=== PATIENT | female | born 1955 | race Caucasian/White ===

== ENCOUNTER 2017-01-19 04:26 | Emergency (ER) | payer SELFPAY ==
[~2017-01-19] VITALS: Ht 157.5 cm; Wt 79.4 kg
--- NOTE | 2017-01-19 04:41 | PHYS DOC ---
Adult General Chief Complaint Chief Complaint: ABDOMINAL PAIN HPI HPI Patient is a 61 year old female presenting to the emergency department for evaluation of abdominal pain nausea vomiting. Patient says that this pain started 3 days ago and started in the right flank but is now radiating towards the right lower quadrant and associated with nausea vomiting chills difficulty urinating. He says that she has had a cholecystectomy but she still has her appendix and she denies ever having kidney stones. She says that there is no gross hematuria. Patient appears uncomfortable but is nontoxic in no obvious distress. Review of Systems Review of Systems Constitutional: Denies fever or chills [] Eyes: Denies change in visual acuity, redness, or eye pain [] HENT: Denies nasal congestion or sore throat [] Respiratory: Denies cough or shortness of breath [] Cardiovascular: No additional information not addressed in HPI [] GI: + abdominal pain, nausea, vomiting. No bloody stools or diarrhea [] : + dysuria. No hematuria [] Musculoskeletal: + back pain. No joint pain [] Integument: Denies rash or skin lesions [] Neurologic: Denies headache, focal weakness or sensory changes [] Current Medications Current Medications Current Medications Medications (Trade) Dose Ordered Sig/Kevan Start Time Stop Time Status Last Admin Dose Admin Fentanyl Citrate (Fentanyl 2ml Vial) 75 mcg 1X ONCE 01/19/17 05:15 01/19/17 05:16 DC 01/19/17 06:00 75 MCG Iohexol (Omnipaque 300 Mg/ml) 60 ml 1X ONCE 01/19/17 05:30 01/19/17 05:31 DC 01/19/17 05:55 60 ML Ketorolac Tromethamine (Toradol) 30 mg 1X ONCE 01/19/17 05:15 01/19/17 05:16 DC 01/19/17 06:02 30 MG Ondansetron HCl (Zofran) 8 mg 1X ONCE 01/19/17 05:15 01/19/17 05:16 DC 01/19/17 05:56 8 MG Sodium Chloride 1,000 ml @ 1,000 mls/hr 1X ONCE 01/19/17 05:00 01/19/17 05:59 DC 01/19/17 05:55 1,000 MLS/HR Allergies Allergies Allergies Coded Allergies Type Severity Reaction Last Updated Verified Penicillins Allergy Unknown 01/19/17 Yes ibuprofen Allergy Unknown 01/19/17 Yes tetracycline Allergy Unknown 01/19/17 Yes Physical Exam Physical Exam Constitutional: Well developed, well nourished, no acute distress, non-toxic appearance. [] HENT: Normocephalic, atraumatic, bilateral external ears normal, oropharynx moist, no oral exudates, nose normal. [] Eyes: PERRLA, EOMI, conjunctiva normal, no discharge. [] Neck: Normal range of motion, no tenderness, supple, no stridor. [] Cardiovascular:Heart rate regular rhythm, no murmur [] Lungs & Thorax: Bilateral breath sounds clear to auscultation [] Abdomen: Bowel sounds normal, soft, + RLQ tenderness, no rebound or guarding, no masses, no pulsatile masses. [] Skin: Warm, dry, no erythema, no rash. [] Back: No tenderness, + R CVA tenderness. [] Extremities: No tenderness, no cyanosis, no clubbing, ROM intact, no edema. [] Neurologic: Alert and oriented X 3, normal motor function, normal sensory function, no focal deficits noted. [] Current Patient Data Vital Signs Vital Signs Date Time Temp Pulse Resp B/P (MAP) Pulse Ox O2 Delivery O2 Flow Rate FiO2 01/19/17 06:00 16 94 Room Air 01/19/17 05:54 60 167/71 (103) 01/19/17 04:49 98.3 98.3 Lab Values Laboratory Tests Test 01/19/17 04:56 01/19/17 05:04 White Blood Count 14.0 x10^3/uL (4.0-11.0) H Red Blood Count 4.84 x10^6/uL (3.50-5.40) Hemoglobin 14.7 g/dL (12.0-15.5) Hematocrit 43.0 % (36.0-47.0) Mean Corpuscular Volume 89 fL (79-100) Mean Corpuscular Hemoglobin 30 pg (25-35) Mean Corpuscular Hemoglobin Concent 34 g/dL (31-37) Red Cell Distribution Width 12.5 % (11.5-14.5) Platelet Count 248 x10^3/uL (140-400) Neutrophils (%) (Auto) 74 % (31-73) H Lymphocytes (%) (Auto) 18 % (24-48) L Monocytes (%) (Auto) 7 % (0-9) Eosinophils (%) (Auto) 0 % (0-3) Basophils (%) (Auto) 1 % (0-3) Neutrophils # (Auto) 10.3 x10^3uL (1.8-7.7) H Lymphocytes # (Auto) 2.6 x10^3/uL (1.0-4.8) Monocytes # (Auto) 0.9 x10^3/uL (0.0-1.1) Eosinophils # (Auto) 0.1 x10^3/uL (0.0-0.7) Basophils # (Auto) 0.1 x10^3/uL (0.0-0.2) Prothrombin Time 11.6 SEC (11.7-14.0) L Prothrombin Time INR 0.9 (0.8-1.1) PTT 27 SEC (24-38) Sodium Level 139 mmol/L (136-145) Potassium Level 3.4 mmol/L (3.5-5.1) L Chloride Level 101 mmol/L (98-107) Carbon Dioxide Level 28 mmol/L (21-32) Anion Gap 10 (6-14) Blood Urea Nitrogen 16 mg/dL (7-20) Creatinine 1.3 mg/dL (0.6-1.0) H Estimated GFR (Cockcroft-Gault) 41.6 BUN/Creatinine Ratio 12 (6-20) Glucose Level 137 mg/dL (70-99) H Calcium Level 9.3 mg/dL (8.5-10.1) Total Bilirubin 0.3 mg/dL (0.2-1.0) Aspartate Amino Transferase (AST) 23 U/L (15-37) Alanine Aminotransferase (ALT) 20 U/L (14-59) Alkaline Phosphatase 90 U/L (46-116) Total Protein 6.9 g/dL (6.4-8.2) Albumin 3.4 g/dL (3.4-5.0) Albumin/Globulin Ratio 1.0 (1.0-1.7) Lipase 300 U/L (73-393) Urine Collection Type Unknown Urine Color Yellow Urine Clarity Clear Urine pH 6.0 Urine Specific [place] 1.020 Urine Protein Negative mg/dL (NEG-TRACE) Urine Glucose (UA) Negative mg/dL (NEG) Urine Ketones (Stick) Negative mg/dL (NEG) Urine Blood Negative (NEG) Urine Nitrite Negative (NEG) Urine Bilirubin Negative (NEG) Urine Urobilinogen Dipstick 0.2 mg/dL (0.2 mg/dL) Urine Leukocyte Esterase Negative (NEG) Urine RBC Occ /HPF (0-2) Urine WBC Occ /HPF (0-4) Urine Squamous Epithelial Cells Few /LPF Urine Bacteria 0 /HPF (0-FEW) Urine Mucus Mod /LPF Laboratory Tests 01/19/17 04:56 Laboratory Tests 01/19/17 04:56 EKG EKG [] Radiology/Procedures Radiology/Procedures EXAM: Abdomen and pelvis CT with intravenous contrast. HISTORY: 61-year-old female with right lower quadrant pain. TECHNIQUE: Computed tomographic images of the abdomen and pelvis were obtained following the administration of 60 cc of Omni 300 intravenous contrast. Multiplanar reformatting was performed. PQRS compliance statement: One or more of the following individualized dose reduction techniques were utilized for this examination: 1. Automated exposure control 2. Adjustment of the mA and/or kV according to patient size 3. Use of iterative reconstruction technique COMPARISON: None available. FINDINGS: There is partial visualization of an irregular opacity in the left lung base along the superior aspect of the diaphragm. Right lung bases clear. The liver demonstrates no focal abnormality. Mild intrahepatic and extrahepatic biliary ductal dilatation is seen, likely secondary to postcholecystectomy status. The spleen, pancreas, adrenal glands and left kidney demonstrate no focal abnormality. There is moderate right hydronephrosis with mild perinephric stranding. There is mild right hydroureter with periureteral stranding. Within the distal right ureter just proximal to the ureterovesicular junction is a 4 mm calculus. A single punctate calculus is seen within each renal collecting system. No left hydronephrosis is present.. The GI tract demonstrates no dilated bowel loops to suggest obstruction. The colon is decompressed throughout its length, not well evaluated. The urinary bladder is grossly unremarkable. The uterus is surgically absent. No adnexal mass is seen. No intra-abdominal or pelvic free fluid, free air or significant lymphadenopathy is seen. Aorta is normal in caliber, with prominent atherosclerotic calcification present. Overlying soft tissues and visualized osseous structures demonstrate no acute or suspicious finding. Degenerative changes are present within the lumbar spine. IMPRESSION: 1. A 4 mm, obstructing, distal right ureteral calculus is present just proximal to the UVJ, resulting in moderate right hydronephrosis as well as mild perinephric and periureteral stranding. 2. Punctate bilateral renal calculi. No left hydronephrosis. 3. Partially visualized irregular opacity in the left lung base, incompletely evaluated. Recommend outpatient dedicated CT chest exam for further evaluation. 4. Other incidental findings, detailed above. Electronically signed by: Ana Esteban MD (01/19/2017 6:06 AM) [facility] DICTATED and SIGNED BY: ANA ESTEBAN MD DATE: 01/19/17 0559 Course & Med Decision Making Course & Med Decision Making Patient with what sounds like to be a kidney stone to me however we'll check urine labs and likely CT and then reassess. There was no blood in her urine so CT with contrast was obtained. CT results still pending some transfer care to Dr. Strickland while awaiting results of tests. --- Assumed care from Dr. Barreto at the end of his shift. CT results as above. Patient has obstructing 4 mm ureteral stone with hydronephrosis, no infection. She felt better after receiving medications & requests discharge home. Recommend rest, hydration, gave prescriptions for norco, zofran, flomax. Recommend follow up with urology as soon as possible, unfortunately no urology coverage here. PCP may be able to assist. Come back for high fever, severe pain, uncontrolled vomiting, any otherwise worsening condition. Discharged home in stable condition. Barby Copeland Disclaimer Dinorah Disclaimer This electronic medical record was generated, in whole or in part, using a voice recognition dictation system. Departure Departure Impression: Primary Impression: Abdominal pain Additional Impressions: Nausea & vomiting Right ureteral stone Disposition: HOME, SELF-CARE Condition: IMPROVED Patient Instructions: Kidney Stones, [id number] Additional Instructions: You were seen in the emergency department today for kidney stone. You felt better after treatment. Please rest, drink fluids to stay hydrated, take norco for severe pain & zofran for nausea, take flomax to promote passage of the stone. Follow up with a urologist within 1 week. Come back for high fever, severe pain, uncontrolled vomiting, any otherwise worsening condition. Your primary care doctor should also review your CT results with you. The radiologist saw an abnormal area in the bottom portion of your lung that may require a CT scan of your chest. Scripts Tamsulosin Hcl (FLOMAX) 0.4 Mg Cap.er.24h 1 CAP PO DAILY, #14 CAP 0 Refills Prov: BARBY NÚÑEZ MD 01/19/17 Ondansetron (ZOFRAN ODT) 4 Mg Tab.rapdis 1 TAB SL Q8HRS, #10 TAB Prov: BARBY NÚÑEZ MD 01/19/17 Hydrocodone/Apap 5-325 (NORCO 5-325 TABLET) 1 Each Tablet 1 TAB PO PRN Q6HRS Y for PAIN, #10 TAB 0 Refills Prov: BARBY NÚÑEZ MD 01/19/17 Problem Qualifiers STEFAN BARRETO DO Jan 19, 2017 04:41 BARBY NÚÑEZ MD Jan 19, 2017 06:47
[2017-01-19] MEDS ORDERED: IV NORMAL SALINE 1000ML BAG 1,000 ML IV ONE (05:00)
[2017-01-19 05:01] LABS: BASO # 0.1 x10^3/uL (0.0-0.2); BASO % 1 % (0-3); EOS % 0 % (0-3); HEMOGLOBIN 14.7 g/dL (12.0-15.5); LYMPH # 2.6 x10^3/uL (1.0-4.8); LYMPH % 18 % (24-48); MEAN CORPUSCULAR HEMOGLOBIN 30 pg (25-35); MEAN CORPUSCULAR HGB CONC 34 g/dL (31-37); MEAN CORPUSCULAR VOLUME 89 fL (79-100); MONO % 7 % (0-9); NEUT % 74 % (31-73); PLATELET COUNT 248 x10^3/uL (140-400); RED BLOOD COUNT 4.84 x10^6/uL (3.50-5.40); RED CELL DISTRIBUTION WIDTH 12.5 % (11.5-14.5)
[2017-01-19 05:08] LABS: CALCIUM 9.3 mg/dL (8.5-10.1); CREATININE 1.3 mg/dL (0.6-1.0); GFR 41.6; POTASSIUM 3.4 mmol/L (3.5-5.1)
[2017-01-19 05:14] LABS: ALBUMIN 3.4 g/dL (3.4-5.0); TOTAL BILIRUBIN 0.3 mg/dL (0.2-1.0); TOTAL PROTEIN 6.9 g/dL (6.4-8.2)
[2017-01-19 05:14] LABS: BILIRUBIN,URINE NEGATIVE (NEG); GLUCOSE,URINE NEGATIVE (NEG); NITRITE,URINE NEGATIVE (NEG); PROTEIN,URINE NEGATIVE (NEG-TRACE); UROBILINOGEN,URINE 0.2 mg/dL (0.2 mg/dL)
[2017-01-19] MEDS ORDERED: fentaNYL PF VIAL 100 MCG/2 ML VIAL IV ONE (05:15)
[2017-01-19] MEDS ORDERED: ONDANSETRON PF 4 MG/2 ML VIAL. IV ONE (05:15)
[2017-01-19] MEDS ORDERED: KETOROLAC TROMETHAMINE 30 MG/ML INJ. IV ONE (05:15)
[2017-01-19 05:26] LABS: BACTERIA,URINE 0 /HPF (0-FEW); RBC,URINE OCC /HPF (0-2); SQUAMOUS EPITHELIAL CELL,UR FEW /LPF; WBC,URINE OCC /HPF (0-4)
[2017-01-19] MEDS ORDERED: IOHEXOL 300 MG/ML 75 ML VIAL IV ONE (05:30)
[2017-01-19 05:33] LABS: INR 0.9 (0.8-1.1); PROTHROMBIN TIME PATIENT 11.6 SEC (11.7-14.0)
[2017-01-19 05:54] VITALS: BP 167/71
--- NOTE | 2017-01-19 06:09 | RAD ---
EXAM: Abdomen and pelvis CT with intravenous contrast. HISTORY: 61-year-old female with right lower quadrant pain. TECHNIQUE: Computed tomographic images of the abdomen and pelvis were obtained following the administration of 60 cc of Omni 300 intravenous contrast. Multiplanar reformatting was performed. PQRS compliance statement: One or more of the following individualized dose reduction techniques were utilized for this examination: 1. Automated exposure control 2. Adjustment of the mA and/or kV according to patient size 3. Use of iterative reconstruction technique COMPARISON: None available. FINDINGS: There is partial visualization of an irregular opacity in the left lung base along the superior aspect of the diaphragm. Right lung bases clear. The liver demonstrates no focal abnormality. Mild intrahepatic and extrahepatic biliary ductal dilatation is seen, likely secondary to postcholecystectomy status. The spleen, pancreas, adrenal glands and left kidney demonstrate no focal abnormality. There is moderate right hydronephrosis with mild perinephric stranding. There is mild right hydroureter with periureteral stranding. Within the distal right ureter just proximal to the ureterovesicular junction is a 4 mm calculus. A single punctate calculus is seen within each renal collecting system. No left hydronephrosis is present.. The GI tract demonstrates no dilated bowel loops to suggest obstruction. The colon is decompressed throughout its length, not well evaluated. The urinary bladder is grossly unremarkable. The uterus is surgically absent. No adnexal mass is seen. No intra-abdominal or pelvic free fluid, free air or significant lymphadenopathy is seen. Aorta is normal in caliber, with prominent atherosclerotic calcification present. Overlying soft tissues and visualized osseous structures demonstrate no acute or suspicious finding. Degenerative changes are present within the lumbar spine. IMPRESSION: 1. A 4 mm, obstructing, distal right ureteral calculus is present just proximal to the UVJ, resulting in moderate right hydronephrosis as well as mild perinephric and periureteral stranding. 2. Punctate bilateral renal calculi. No left hydronephrosis. 3. Partially visualized irregular opacity in the left lung base, incompletely evaluated. Recommend outpatient dedicated CT chest exam for further evaluation. 4. Other incidental findings, detailed above. Electronically signed by: Sharon Esteban MD (01/19/2017 6:06 AM) [facility]
[2017-01-19] MEDS ORDERED: HYDR-971 PO (06:46)
[2017-01-19] MEDS ORDERED: TAMS0.4C97 PO (06:46)
[2017-01-19] MEDS ORDERED: ONDA4TAB10 SL (06:46)
== END 2017-01-19 07:18 | disposition home or self-care (01) ==
LOC: ER 04:26
DX: N20.1 Calculus of ureter (principal); R11.2 Nausea with vomiting, unspecified; Z88.0 Allergy status to penicillin; Z88.6 Allergy status to analgesic agent; Z88.1 Allergy status to other antibiotic agents; Z90.49 Acquired absence of other specified parts of digestive tract
CPT/HCPCS: 36415; 74177; 80053; 81001; 83690; 85025; 85610; 85730; 96361; 96374; 96375; 99284; J1885; J2405; J3010; J7030; Q9967

== ENCOUNTER 2017-02-20 20:49 | Emergency (ER) | payer SELFPAY ==
[~2017-02-20] VITALS: Ht 157.5 cm; Wt 83.9 kg
[~2017-02-20 20:49] MED LIST: HYDR-971 PO; ONDA4TAB10 SL; TAMS0.4C97 PO
[2017-02-20 21:30] LABS: BASO # 0.1 x10^3/uL (0.0-0.2); BASO % 1 % (0-3); EOS % 1 % (0-3); HEMATOCRIT 48.3 % (36.0-47.0); HEMOGLOBIN 16.2 g/dL (12.0-15.5); LYMPH # 3.1 x10^3/uL (1.0-4.8); LYMPH % 19 % (24-48); MEAN CORPUSCULAR HEMOGLOBIN 30 pg (25-35); MEAN CORPUSCULAR HGB CONC 34 g/dL (31-37); MEAN CORPUSCULAR VOLUME 89 fL (79-100); MONO % 5 % (0-9); NEUT % 75 % (31-73); PLATELET COUNT 305 x10^3/uL (140-400); RED BLOOD COUNT 5.42 x10^6/uL (3.50-5.40); WHITE BLOOD COUNT 16.3 x10^3/uL (4.0-11.0)
[2017-02-20 21:41] LABS: CALCIUM 10.4 mg/dL (8.5-10.1); GFR 56.2; POTASSIUM 3.7 mmol/L (3.5-5.1)
[2017-02-20 21:47] LABS: ALBUMIN 4.2 g/dL (3.4-5.0); TOTAL BILIRUBIN 0.3 mg/dL (0.2-1.0); TOTAL PROTEIN 8.3 g/dL (6.4-8.2)
[2017-02-20] MEDS ORDERED: HYDROmorphone 2 MG/ML VIAL IV ONE ×2 (22:00→23:30)
[2017-02-20] MEDS ORDERED: ONDANSETRON PF 4 MG/2 ML VIAL. IV ONE (22:00)
--- NOTE | 2017-02-20 22:38 | RAD ---
PQRS Compliance Statement: One or more of the following individualized dose reduction techniques were utilized for this examination: 1. Automated exposure control 2. Adjustment of the mA and/or kV according to patient size 3. Use of iterative reconstruction technique CT abdomen/pelvis without contrast February 20, 2017 at 10:01 PM INDICATION: Left flank pain COMPARISON: CT abdomen/pelvis January 19, 2017 TECHNIQUE: Multiple axial CT images of the abdomen and pelvis were obtained without intravenous contrast. Coronal and sagittal reformats are provided. FINDINGS: There is nodular opacity in the left lower lobe, stable dating back to January 19, 2017. This abuts the pleura and may be associated with rounded atelectasis. Heart size is normal in appearance. Evaluation of the solid abdominal viscera is limited by lack of intravenous contrast. Liver, spleen, and pancreas are within normal limits. Gallbladder surgically absent. There is an infrarenal abdominal aortic aneurysm measuring 2.5 x 2.4 cm, stable. No pathologically enlarged abdominal or pelvic lymph nodes. No free fluid or free intraperitoneal air. There is a 3 mm calculus in the distal left ureter, 1 cm from the ureterovesicular junction. There is associated mild left hydronephrosis. There is a 2 mm calculus in the superior pole the right kidney. There is a 5 mm calculus at the right ureterovesicular junction with moderate right hydroureteronephrosis. Small and large bowel are normal in caliber. There are no adjacent inflammatory changes. No evidence for bowel obstruction. No suspicious osseous lesion is identified. IMPRESSION: 1. There is a 3 mm calculus in the distal left ureter resulting in mild left hydroureteronephrosis. Mild left perinephric stranding. 2. There is a 5 mm calculus in the right ureterovesicular junction resulting in moderate right hydroureteronephrosis. No significant perinephric stranding. Electronically signed by: Marian Walker MD (02/20/2017 10:34 PM) [facility]
[2017-02-20 23:09] LABS: BILIRUBIN,URINE NEGATIVE (NEG); GLUCOSE,URINE NEGATIVE (NEG); NITRITE,URINE NEGATIVE (NEG); PH,URINE 5.5; PROTEIN,URINE 30 mg/dL (NEG-TRACE); UROBILINOGEN,URINE 0.2 mg/dL (0.2 mg/dL)
[2017-02-20 23:14] LABS: BACTERIA,URINE FEW /HPF (0-FEW); RBC,URINE >40 /HPF (0-2); SQUAMOUS EPITHELIAL CELL,UR MOD /LPF
--- NOTE | 2017-02-21 00:02 | PHYS DOC ---
Past Medical History Past Medical History: Bipolar, Hypothyroid Past Surgical History: Cholecystectomy, Hysterectomy, Tonsillectomy Alcohol Use: None Drug Use: Marijuana Adult General Chief Complaint Chief Complaint: FLANK PAIN HPI HPI Patient is a 62 year old female who has a history significant for kidney stones that was diagnosed approximately 2 weeks ago on the right side. Patient reports that she was seen and evaluated was discharged home with Flomax, Zofran and pain medicines. Patient reports that her pain had resolved until about 3 days ago when she started having increasing pain that was now on the left flank area as well as left lower quadrant and still some pain in her right side. Patient reports been nauseous and vomiting. Patient has any fevers shakes chills. Patient has any diarrhea or chest pain. Patient has any shortness of breath. Patient reports she's had decreased urinary output that she's not sure if it secondary to dehydration and decreased by mouth intake. Patient denies any calf tenderness, hemoptysis, shortness of breath. Patient reports she has no history significant for hypertension diabetes lung or liver problems. Patient has had a hysterectomy cholecystectomy and appendectomy in the past. Patient reports she does smoke no alcohol or drugs. 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 Review of systems Constitutional: Denies fever or chills Eyes: Denies change in visual acuity, redness, or eye pain All other review systems are negative except as documented in the history of present illness portion. Physical exam Constitutional: Well developed, well nourished, no acute distress, non-toxic appearance. HENT: Normocephalic, atraumatic, bilateral external ears normal, oropharynx moist, no oral exudates, nose normal. Eyes: conjunctiva normal, no discharge. Neck: Normal range of motion, no tenderness, supple, no stridor. Cardiovascular:Heart rate regular rhythm, Lungs & Thorax: Bilateral breath sounds clear to auscultation Abdomen: Bowel sounds normal, soft, no tenderness, no masses, no pulsatile masses. Skin: Warm, dry, Back: Patient with tenderness to palpation to left flank and left lower quadrant. Mild tenderness palpation right flank. Extremities: No tenderness, no cyanosis, Neurologic: Alert and oriented X 3, normal motor function, normal sensory function, no focal deficits noted. Psychologic: Affect normal, judgement normal, mood normal. CT scan of the abdomen pelvis reveals a 3 mm calculus in the distal left ureter approximately 1 cm above the UVJ. This is associated with some mild left hydronephrosis. There is a 5 mm contact was at the right UVJ with moderate amount of right hydronephrosis. UA reveals many RBCs with few wbc's. Patient's CBC and chemistries otherwise unremarkable. Assessment and plan This is a 62-year-old female who presents to the ER today with sinus symptoms consistent for renal colic. Patient's complete was greatest in the left flank region. Patient reports that she was recently diagnosed with a kidney stone that was on the right side. Patient's CT scan today revealed bilateral hydronephrosis. Patient has a 3 mm stone in the distal left ureter and a 5 mm stone in the right UVJ. Patient received multiple doses of pain medication in the ED with minimal relief in her discomfort. Patient was given 1 L of normal saline. Unfortunately we do not have a urological consultation here at [facility]. Patient is requesting to be transferred to . We have discussed with transport service and they report that they aren't divergent for transfers that are noncritical. Patient is requesting that we transfer her to [facility]. We are currently in the process of talking to the [facility] transfer service for assistance with urological evaluation of this patient. 1. Intractable renal colic 2. Bilateral hydronephrosis Current Medications Current Medications Current Medications Medications (Trade) Dose Ordered Sig/Kevan Start Time Stop Time Status Last Admin Dose Admin Hydromorphone HCl (Dilaudid) 1 mg 1X ONCE 02/20/17 23:30 02/20/17 23:31 DC 02/20/17 23:36 1 MG Ondansetron HCl (Zofran) 4 mg 1X ONCE 02/20/17 22:00 02/20/17 22:01 DC 02/20/17 21:40 4 MG Allergies Allergies Allergies Coded Allergies Type Severity Reaction Last Updated Verified Penicillins Allergy Intermediate 02/20/17 Yes ibuprofen Allergy Intermediate 02/20/17 Yes tetracycline Allergy Intermediate 02/20/17 Yes Current Patient Data Vital Signs Vital Signs Date Time Temp Pulse Resp B/P (MAP) Pulse Ox O2 Delivery O2 Flow Rate FiO2 02/20/17 22:24 20 96 Room Air 02/20/17 22:13 70 157/70 (99) 02/20/17 21:04 98.1 98.1 Lab Values Laboratory Tests Test 02/20/17 20:19 02/20/17 23:03 White Blood Count 16.3 x10^3/uL (4.0-11.0) H Red Blood Count 5.42 x10^6/uL (3.50-5.40) H Hemoglobin 16.2 g/dL (12.0-15.5) H Hematocrit 48.3 % (36.0-47.0) H Mean Corpuscular Volume 89 fL (79-100) Mean Corpuscular Hemoglobin 30 pg (25-35) Mean Corpuscular Hemoglobin Concent 34 g/dL (31-37) Red Cell Distribution Width 13.0 % (11.5-14.5) Platelet Count 305 x10^3/uL (140-400) Neutrophils (%) (Auto) 75 % (31-73) H Lymphocytes (%) (Auto) 19 % (24-48) L Monocytes (%) (Auto) 5 % (0-9) Eosinophils (%) (Auto) 1 % (0-3) Basophils (%) (Auto) 1 % (0-3) Neutrophils # (Auto) 12.2 x10^3uL (1.8-7.7) H Lymphocytes # (Auto) 3.1 x10^3/uL (1.0-4.8) Monocytes # (Auto) 0.9 x10^3/uL (0.0-1.1) Eosinophils # (Auto) 0.1 x10^3/uL (0.0-0.7) Basophils # (Auto) 0.1 x10^3/uL (0.0-0.2) Sodium Level 139 mmol/L (136-145) Potassium Level 3.7 mmol/L (3.5-5.1) Chloride Level 99 mmol/L (98-107) Carbon Dioxide Level 29 mmol/L (21-32) Anion Gap 11 (6-14) Blood Urea Nitrogen 19 mg/dL (7-20) Creatinine 1.0 mg/dL (0.6-1.0) Estimated GFR (Cockcroft-Gault) 56.2 BUN/Creatinine Ratio 19 (6-20) Glucose Level 161 mg/dL (70-99) H Calcium Level 10.4 mg/dL (8.5-10.1) H Total Bilirubin 0.3 mg/dL (0.2-1.0) Aspartate Amino Transferase (AST) 42 U/L (15-37) H Alanine Aminotransferase (ALT) 36 U/L (14-59) Alkaline Phosphatase 149 U/L (46-116) H Total Protein 8.3 g/dL (6.4-8.2) H Albumin 4.2 g/dL (3.4-5.0) Albumin/Globulin Ratio 1.0 (1.0-1.7) Lipase 457 U/L (73-393) H Urine Collection Type Unknown Urine Color Kayla Urine Clarity Cloudy Urine pH 5.5 Urine Specific [place] >=1.030 Urine Protein 30 mg/dL (NEG-TRACE) Urine Glucose (UA) Negative mg/dL (NEG) Urine Ketones (Stick) Trace mg/dL (NEG) Urine Blood Large (NEG) Urine Nitrite Negative (NEG) Urine Bilirubin Negative (NEG) Urine Urobilinogen Dipstick 0.2 mg/dL (0.2 mg/dL) Urine Leukocyte Esterase Small (NEG) Urine RBC >40 /HPF (0-2) Urine WBC 5-10 /HPF (0-4) Urine Squamous Epithelial Cells Mod /LPF Urine Bacteria Few /HPF (0-FEW) Urine Mucus Marked /LPF Laboratory Tests 02/20/17 20:19 Laboratory Tests 02/20/17 20:19 EKG EKG [] Radiology/Procedures Radiology/Procedures [] Course & Med Decision Making Course & Med Decision Making Pertinent Labs and Imaging studies reviewed. (See chart for details) [] Dragon Disclaimer Dragon Disclaimer This electronic medical record was generated, in whole or in part, using a voice recognition dictation system. Departure Departure Impression: Primary Impression: Renal colic, bilateral Additional Impressions: Bilateral hydronephrosis Intractable abdominal pain Disposition: 05 TRANSFER OTHER Condition: STABLE Referrals: BURKE STEEN MD (PCP) Problem Qualifiers ERNIE CALDERON MD Feb 21, 2017 00:02
[2017-02-21 00:51] VITALS: BP 123/58
== END 2017-02-21 01:17 | disposition short-term general hospital (02) ==
LOC: ER 20:49
DX: N13.2 Hydronephrosis with renal and ureteral calculous obstruction (principal); E03.9 Hypothyroidism, unspecified; F31.9 Bipolar disorder, unspecified; Z87.442 Personal history of urinary calculi; Z88.0 Allergy status to penicillin; Z90.710 Acquired absence of both cervix and uterus; Z90.49 Acquired absence of other specified parts of digestive tract
CPT/HCPCS: 36415; 74176; 80053; 81001; 83690; 85025; 87086; 96374; 96375; 96376; 99285; J1170; J2405